=== PATIENT | female | born 1995 | race African-American/Black ===

== ENCOUNTER 2024-01-04 23:22 | Emergency (ER) | payer SELFPAY ==
[~2024-01-04] VITALS: Ht 160 cm; Wt 76.1 kg
[2024-01-05 00:18] VITALS: O2SAT 100
[2024-01-05] MEDS: ACETAMINOPHEN 500MG TABLET PO ONE (02:35)
[2024-01-05] MEDS: LIDOCAINE 5% PATCH TOP SCH (02:35)
[2024-01-05] MEDS ORDERED: NAPR-1176 MT (02:52)
[2024-01-05] MEDS ORDERED: LIDO700A15 TP (02:52)
[2024-01-05 02:57] VITALS: BP 149/98; PULSE 60; RESP 19; TEMP 36.72516; O2SAT 100
== END 2024-01-05 03:00 | disposition home or self-care (01) ==
LOC: ER 23:22
DX: M54.2 Cervicalgia (principal); F41.9 Anxiety disorder, unspecified
CPT/HCPCS: 99283